=== PATIENT | female | born 1970 | race Caucasian/White ===

== ENCOUNTER 2024-12-14 07:25 | Day surgery (SDC) | payer OTHER ==
[~2024-12-14] VITALS: Ht 160 cm; Wt 134.5 kg
[~2024-12-14 07:25] MED LIST: AMLO-258 PO; ATOR20TA PO; BUPR-344 PO; DEXL60CA3 PO; LEVO150 PO; SODIUM CHLORIDE 0.9% 1,000 ML ONE; TIRZ2.5P3 SQ
[2024-12-14] MEDS: SODIUM CHLORIDE 0.9% 1,000 ML IV ONE (08:11)
[2024-12-14] MEDS ORDERED: PROPOFOL 1% 20 ML VIAL IVP ONE (18:00)
== END 2024-12-14 10:15 | disposition home or self-care (01) ==
LOC: SURGERY 07:25
PROVIDERS: ATTEND Internal Medicine Gastroenterology
DX: R19.4 Change in bowel habit (principal); K57.30 Diverticulosis of large intestine without perforation or abscess without bleeding; F41.9 Anxiety disorder, unspecified; E78.00 Pure hypercholesterolemia, unspecified; K21.9 Gastro-esophageal reflux disease without esophagitis; I12.9 Hypertensive chronic kidney disease with stage 1 through stage 4 chronic kidney disease, or unspecified chronic kidney disease; N18.30 Chronic kidney disease, stage 3 unspecified; K76.0 Fatty (change of) liver, not elsewhere classified; Z90.710 Acquired absence of both cervix and uterus; Z98.890 Other specified postprocedural states; Z87.891 Personal history of nicotine dependence; Z79.899 Other long term (current) drug therapy
CPT/HCPCS: 45380; C1769; J7030; 88305; J2704